=== PATIENT | male | born 1950 | race Caucasian/White ===

== ENCOUNTER 2022-04-21 10:02 | Outpatient (REF) | payer MEDICARE, OTHER, SELFPAY ==
[2022-04-21 11:14] LABS: SARS PCR* Negative SARS-CoV-2 (Negative)
== END 2022-04-21 10:03 | disposition home or self-care (01) ==
LOC: NPINS 10:02
PROVIDERS: PCP Family Medicine; Visit Provider Internal Medicine
DX: Z11.52 Encounter for screening for COVID-19 (principal)
CPT/HCPCS: 87635

== ENCOUNTER 2022-04-22 20:31 | Outpatient (CLI) | payer MEDICARE, OTHER, SELFPAY | END 2022-04-22 20:32 | disposition home or self-care (01) | LOC: SLEEP 20:31 | PROVIDERS: PCP Family Medicine; Visit Provider Internal Medicine | DX: G47.33 Obstructive sleep apnea (adult) (pediatric) (principal) | CPT/HCPCS: 95810 ==

== ENCOUNTER 2024-08-18 22:20 | Emergency (ER) | payer MEDICARE, OTHER, SELFPAY ==
[2024-08-18] VITALS (7 sets, daily range): BP systolic 132–151; BP diastolic 85–97; PULSE 95–106; RESP 16; TEMP 36.8; O2SAT 91–93
--- OUTSIDE RECORDS SUMMARY | 2024-08-18 22:22 | XMS_ITS | Continuity of Care Document ---
Author Name [facility] Organization [facility] Care Team Providers Care Rehabilitation Engineer Name Role Phone [facility] Unavailable Unavailable Medications Combined list of outpatient medications from Department of Defense and Veterans Affairs facilities.Medications provided include 1) outpatient medications from the last 15 months, and 2) patient-reported medications. Medication Details Route Status Patient Instructions Prescription Expires Prescription Number Last Dispense Date Ordering Provider Order Date Order Qty Source AMLODIPINE BESYLATE (AMLODIPINE BESYLATE), 10 MG, TABLET, ORAL, [employer], 1000 ea. BOTTLE Cancele d [id number] : 2023 0 Pharmac y Data Transac tion Service Facilit y ATORVASTATI N CALCIUM (atorvastat in calcium), 40 MG, TABLET, ORAL, [facility], 1000 ea. BOTTLE Cancele d [id number] : 2023 0 Pharmac y Data Transac tion Service Facilit y ATORVASTATI N CALCIUM (atorvastat in calcium), 40 MG, TABLET, ORAL, [facility], 1000 ea. BOTTLE Active [id number] 4 2023 90 Pharmac y Data Transac tion Service Facilit y AZELAIC ACID (azelaic acid), 15 %, GEL (GRAM), TOPICAL, [employer], 50 g TUBE Active [id number] 4 2023 50 Pharmac y Data Transac tion Service Facilit y DEXTROAMPHE TAMINE-AMPH ETAMINE (dextroamph etamine sulf-saccha rate/amphet amine sulf-aspart ate), 10 MG, TABLET, ORAL, [employer], 100 ea. BOTTLE Active [id number] 3 2022 90 Pharmac y Data Transac tion Service Facilit y DEXTROAMPHE TAMINE-AMPH ETAMINE (dextroamph etamine sulf-saccha rate/amphet amine sulf-aspart ate), 10 MG, TABLET, ORAL, [employer], 100 ea. BOTTLE Active [id number] 4 2023 90 Pharmac y Data Transac tion Service Facilit y DOXYCYCLINE HYCLATE (doxycyclin e hyclate), 20 MG, TABLET, ORAL, [facility], 90 ea. BOTTLE Active [id number] 4 2023 180 Pharmac y Data Transac tion Service Facilit y DOXYCYCLINE HYCLATE (DOXYCYCLIN E HYCLATE), 20 MG, TABLET, ORAL, [employer] [facility], 100 ea. BOTTLE Active [id number] 4 2023 180 Pharmac y Data Transac tion Service Facilit y FLUOCINONID E (FLUOCINONI DE), 0.05%, SOLUTION, TOPICAL, [employer], 60 ml BOTTLE Active [id number] 2023 60 Pharmac y Data Transac tion Service Facilit y FLUOCINONID E (FLUOCINONI DE), 0.05%, SOLUTION, TOPICAL, [employer], 60 ml BOTTLE Active [id number] 4 2023 60 Pharmac y Data Transac tion Service Facilit y KETOCONAZOL E (ketoconazo le), 2 %, SHAMPOO, TOPICAL, [facility] [place], 120 ml BOTTLE Cancele d [id number] : 2023 0 Pharmac y Data Transac tion Service Facilit y LOSARTAN POTASSIUM (losartan potassium), 50 MG, TABLET, ORAL, [employer] [facility], 90 ea. BOTTLE Active [id number] 4 2023 90 Pharmac y Data Transac tion Service Facilit y METFORMIN HCL (METFORMIN HCL), 1000 MG, TABLET, ORAL, [employer] 500 ea. BOTTLE Active [id number] 4 2023 180 Pharmac y Data Transac tion Service Facilit y METFORMIN HCL (METFORMIN HCL), 1000 MG, TABLET, ORAL, [employer] 500 ea. BOTTLE Active [id number] 4 2023 180 Pharmac y Data Transac tion Service Facilit y MONTELUKAST SODIUM (montelukas t sodium), 10 MG, TABLET, ORAL, [employer] [facility], 90 ea. BOTTLE Active [id number] 4 2023 90 Pharmac y Data Transac tion Service Facilit y SYNTHROID (LEVOTHYROX INE SODIUM), 125MCG, TABLET, ORAL, [facility] 1000 ea. BOTTLE Active [id number] 4 2023 90 Pharmac y Data Transac tion Service Facilit y TRULICITY (dulaglutid e), 3 MG/0.5ML, PEN INJCTR, SUBCUT, [employer] .5 ml SYRINGE Active [id number] 4 2023 6 Pharmac y Data Transac tion Service Facilit y TRULICITY (dulaglutid e), 3 MG/0.5ML, PEN INJCTR, SUBCUT, [employer] .5 ml SYRINGE Cancele d [id number] : 2023 0 Pharmac y Data Transac tion Service Facilit y TRULICITY (dulaglutid e), 3 MG/0.5ML, PEN INJCTR, SUBCUT, [employer] .5 ml SYRINGE Active [id number] 4 2023 6 Pharmac y Data Transac tion Service Facilit y Allergies, Adverse Reactions, Alerts Combined list of allergies from Department of Defense and Veterans Affairs facilities. It does not include entries that were removed or entered in error. Substance Category Reaction Severity Reaction type Status Date Reported Comments Source No Known Allergies Drug allergy (disorder) active 05/02/2007 [facility] Immunizations Combined list of available immunizations from the Department of Defense and Veterans Affairs facilities. Immunization Series Date Given Administered By Site Reaction Lot Number CVX Code Drug Online Marketer Status Comments Source COVID-19, mRNA, LNP-S, PF, 30 mcg/0.3 mL dose, cherry-sucrose 2021 ATTARIAN, () Not Given COVID-19, mRNA, LNP-S, PF, 30 mcg/0.3 mL dose, cherry-sucr ose DoD Procedures Combined list of: 1) Procedures from Department of Veterans Affairs facilities [facility], not all VA non-surgical procedures are included; 2) All procedures from the Department of Defense facilities. Procedure Procedure Type Code Date Perfomer Comments Kayode reynoso ARTHROSCOPY OF SHOULDER 02/22/1993 [facility] OTHER ARTHROTOMY OF SHOULDER 02/22/1993 [facility] Social History Combined list of available smoking, tobacco, and other social history from Department of Defense and Veterans Affairs facilities. Social History Type Response Date Comment Kayode reynoso This section is an empty social history section. DoD
--- OUTSIDE RECORDS SUMMARY | 2024-08-18 22:22 | XMS_ITS | Data Portability ---
Author Organization [facility], [facility] Address [address] [place] [address] Assessment No assessment recorded. Plan of Treatment Reminders Order Date Submit Date Provider Last Modified By Organization Details Last Modified Time Details Appointments None recorded. Lab PSA, total, serum or plasma 2021 022 [email or web address] 30 [facility], [address], [place], [address], 08:46:59 Referral None recorded. Procedures None recorded. Surgeries None recorded. Imaging None recorded. Medication Orders trospium ER 60 mg capsule,ex tended release 24 hr 2021 023 [facility], [address] [place] [address], [address], 17:50:16 Patient TargetsNo targets recorded. Patient InstructionsNo instructions recorded. Reason for Referral None Reported. Results Created Date Observation Date Name Description Value Unit Range Abnormal Flag Note LastModifiedBy Organization Detail LastModifiedTime 08/27/19 23 08/20/2022 bladd er scan (PROC ) No observ ation record ed. BARCODE Not Available 2022 09:48:58 Result Notes None recorded. Procedures Surgical History Date Name Laterality Status Provider Name and Address Organization Details Recorded Time Bladder Scan completed Ryan Prado MD [address] [place] [address],[address] [place] [address], [phone], [facility] 08/20/2022 14:31:25 operation on varicocele completed Ryna Pardo MD [address] [place] [address],[address], [address], [facility] 08/20/2022 14:29:41 Orthopedic Surgery completed Ryan Pardo MD [address] [place] [address],[address], [phone], [facility] 08/20/2022 14:29:49 operation on lumbar spine completed Ryan Pardo MD [address] [place] [address],[address], [phone], [facility] 08/20/2022 14:30:14 Imaging Results Imaging Date Name Status LastModified by Organiz ation Details LastModified Time 08/20/2022 bladder scan (PROC) completed BARCODE Information not available 08/27/2022 09:48:58 Procedure Notes None recorded. Medical Equipment None Reported. Allergies Allergen ID Allergen Name Allergen Category Reaction Reaction Severity Criticality Documentation Date Start Date Code Code System Note Provider Name and Address Organization Details Recorded Time [id number] 2824e Jardiance medicatio n Not available Not available Not available 08/20/2022 34029 59 RxNorm Not Available Not Available Not Available [id number] 2824e lisinopri l medicatio n Not available Not available Not available 08/20/2022 70851 RxNorm Not Available Not Available Not Available [id number] 2824e hydrochlo rothiazid e medicatio n Not available Not available Not available 08/20/2022 5487 RxNorm Not Available Not Available Not Available [id number] 2824e Lunesta medicatio n Not available Not available Not available 08/20/2022 11914 4 RxNorm Not Available Not Available Not Available [id number] 2824e Tradjenta medicatio n Not available Not available Not available 08/20/2022 33096 03 RxNorm Not Available Not Available Not Available Medications Name Sig Start Date Stop Date Status Note LastModified by Organization Details LastModified Time atorvastati n 40 mg tablet active Not Available Not Available Not Available ketoconazol e 2 % shampoo active Not Available Not Available Not Available dextroamphe tamine-amph etamine 10 mg tablet active Not Available Not Available No t Available amlodipine 10 mg tablet active Not Available Not Available Not Available metformin 1,000 mg tablet active Not Available Not Available Not Available levothyroxi ne 125 mcg tablet active Not Available Not Available Not Available dextroamphe tamine-amph etamine 20 mg tablet active Not Available Not Available No t Available losartan 25 mg tablet active Not Available Not Available No t Available Advair Diskus 250 mcg-50 mcg/dose powder for inhalation active Not Available Not Available N ot Available montelukast 10 mg tablet active Not Available Not Available Not Available fluocinonid e 0.05 % topical solution active Not Available Not Available Not Available doxycycline hyclate 20 mg tablet 08/20 completed Not Available Not Available Not Available ketoconazol e 2 % topical cream active Not Available Not Available Not Available trospium 20 mg tablet active Not Available Not Available No t Available ProAir HFA 90 mcg/actuati on aerosol inhaler active Not Available Not Available Not Available trospium ER 60 mg capsule,ext ended release 24 hr Take 1 capsule every day by oral route. 2021 active Not Available Not Available Not Avai lable Trulicity 1.5 mg/0.5 mL subcutaneou s pen injector active Not Available Not Available Not Available Trulicity 3 mg/0.5 mL subcutaneou s pen injector ADMINISTE R 0.5 ML UNDER THE SKIN 1 TIME WEEKLY active Not Available Not Available No t Available Vitals Date Recorded Body height Body mass index (BMI) Body weight Provider Name and Address Organization Details Last Updated DateTime 08/20/2022 175.26 cm 23.6 kg/m2 39010.78 g Ryan Pardo MD [address] [place] [address], [phone], [facility] 08/20/2022 14:24:42 Social History Question Answer Notes LastModified by Organizat ion Details LastModified Time Tobacco Smoking Status Former Smoker Ryan Pardo MD [address] [place] [address],[address], [phone], [facility] 08/20/2022 14:29:26 What Is Your Level Of Alcohol Consumption? Occasional Information not available 08/20/2022 What Is Your Level Of Caffeine Consumption? Occasional Information not available 08/20/2022 When Did You Quit Smoking? 16+yearssincel astcigarette Information not available 08/20/2022 What Was The Date Of Your Most Recent Tobacco Screening? 08/20/2022 Information not available 08/20/2022 Do You Use Any Illicit Or Recreational Drugs? No Information not available 08/20/2022 Do You Or Have You Ever Used Any Other Forms Of Tobacco Or Nicotine? No Information not available 08/20/2022 Sex: Unknown Functional Status None recorded. Mental Status None recorded. Family History Relationship Description Onset Age of this Age Resolved Age Notes LastModified by Organization Details LastModified Time Father Malignant neoplasm of urinary bladder Not available 2021 14:28:27 Unspecified Relation Malignant neoplasm of skin grandf ather side of family Not available 08/20/2022 14:28:55 Paternal Grandmother Malignant tumor of lung Not available 2021 14:29:07 Medical History Condition Response Diabetes Y Other Y High Blood Pressure Y Past Encounters Encounter ID Performer Location Encounter Start Date Encounter Closed Date Diagnosis/Indication Diagnosis SNOMED-CT Code Diagnosis ICD10 Code [id number] Ryan Pardo MD [facility] [address] [place] [phone] 08/20/2022 14:10:45 08/27/2022 16:59:30 Overactive urinary bladder 864279316 N32.81 Lower urin silvino tract symptoms due to benign prostatic hypertrophy 5237185806 9101 N40.1 Health Concerns Section Related Observation LastModified by Organization Detai ls LastModified Time None Recorded Concern Status LastModified by Organization Details LastModified Time None Recorded Advance Directives Directive None Recorded Payers Encounter Date Sequence Insurance Name Policy Number Policy Jorge Covered Member ID Jorge Member ID Guarantor Name 08/20/2022 1 [place]: [employer] Ricco H Moll [id number] Ricco H Moll 08/20/2022 2 [employer] - FOR LIFE (MEDICARE SUPPLEMENT) Ricco H Moll [id number] Ricco Ventura Moll Notes Date Note Type Note Provider Name and Address Organization Details Recorded Time 08/20/2022 text/html 72 yo male with 10 year H/O urinary urgency / frequency. His father has a H/O bladder cancer. He tried Flomax in the past with no change in urination. He tried Rapaflo 8 mg daily - no change. He then tried Oxybutynin ER 5 mg daily - some improvement, but caused dry mouth: then Vesicsare 10 mg daily - minimal change; then Myrbetriq 50 mg daily - some improvement; also tried Detrol LA 4 mg daily - mild improvement.He is currently on Trospium 20 mg BID and CPAP. 09/03/20 - He presents for follow-up on urination. He reports no change in urination - denies hesitancy or dysuria. He voids every 1-3 hours during the day and 3-4x/night. He still has episodes of urgency (with rare leakage). 08/20/22 - He presents for follow-up on urination. He voids every 2-3 hours during the day and 1-3x/night. He has urgency (with occasional leakage) - uses 1 pad per day. He denies dysuria.- PVR = 65 mL ___ PSA - 0.85 (04/28/06)- 0.83 (06/27/08)- 0.82 (08/05/11)- 0.57 (09/02/12)- 0.66 (11/15/13)- 0.45 (09/16/16)- 0.44 (09/15/17)- 0.55 (01/28/19)- 0.63 (03/20/20)- 1.43 (03/21/21) Ryan Pardo MD [address], [place], [address], [facility] 08/26/2022 17:57:11
--- NOTE | 2024-08-18 22:49 | ED.GENADULT ---
HPI - General Adult General Date Seen: 08/18/24 Chief complaint: Neuro Symptoms/Altered Deficit Stated complaint: fatigue Time Seen by Provider: 08/18/24 22:48 History of Present Illness HPI narrative: 74-year-old male brought to the ER today for evaluation of altered mental status. He apparently told his that he was going to leave home and go get dog food matter about 7:00 p.m. but did not come home for several hours. He was found by police department in [facility] and did not know where he was. He has no focal deficits. He apparently has a history of ?mild cognitive impairment?. He is currently alert and oriented x4. Glucose was 299, per EMS. Past medical history from the [facility] link chart include Hypertension Type 2 diabetes Hypothyroidism Hypertriglyceridemia Vitamin-D deficiency Eosinophilic esophagitis Lumbar stenosis ADD Asthma Rosacea His medication list does not include any anticoagulants. He is on amlodipine, losartan for blood pressure Glipizide, metformin for diabetes Levothyroxine for hypothyroid History is obtained in part from the patient, it part from paramedics who brought him in, and in part from the family. He was at home with his and is generally pretty functional. He had an evaluation that showed mild cognitive impairment last year but is not have a diagnosis of dementia. He does have trouble with sleep and was started on mirtazapine about 3 weeks ago. He has not noted any new side effects from that. He the patient says he may have had a mild cough for a couple of days, but his really does not think so. He does have trouble with sleep because he gets up frequently to urinate every night. That is not really a new symptom for him. He has no definite new symptoms lately. No fevers. No known fall or head injury. His son notes that he generally tends not to eat or drink very much and tends to be very dehydrated but that is a longstanding problem for him. This evening at about 7:00 p.m. he left his home here in [place] to go to [employer] to buy some dog food. He is able to tell me that he has 2 different breathes of dogs and that they by 2 brands of dry dog food to mix with green beans for his dogs. His says that all these about a [address] their house and he normally would be able to get there and back with no difficulty. He had been gone for a couple of hours before his realized that he had not come home on time. The patient had gotten lost on the road and drove all the way to [facility] [place]. He was disoriented and could not figure out where he was or how to get home. 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 He apparently called his . She called his children, who live in [place] and were driving South to pick him up. They were able to locate him because of his ?find my phone? rosa on his smart phone. His [id number] called police and they went to his location. They checked him out and he was disoriented. They called paramedics who transported him here to the ER [place]. Now that he is here he says he is just ?very sleepy. ? he 1st keep his eyes closed. When I ask a couple of times he does open them. GCS 14. He has no other complaints. No headache. No chest pain. No nausea vomiting. No known rashes. No falls. No body aches or pain. He is not short of breath. Related Data Allergies Allergy/AdvReac Type Severity Reaction Status Date / Time linagliptin Allergy Severe Hives Verified 03/31/22 10:14 empagliflozin Allergy Mild Hives Verified 03/31/22 10:14 eszopiclone Allergy Mild Hives Verified 03/31/22 10:14 LISINOPRIL-HYDROCHLOROTHIAZIDE Allergy Mild decreased Uncoded 03/31/22 10:14 renal function Exam Narrative: Exam Narrative: Constitutional: Appears well-developed and well-nourished. Eyes are closed. Seems drowsy. Answers many questions appropriately but overall is a fairly flat affect. Seems unconcerned by the fact that he was so disoriented tonight. He opens his eyes to request. HENT: Head: Atraumatic. No depressed skull fracture, Raccoon Eyes, Fitzgerald's sign, or hemotympanum. Face normal. TMs normal Nose: Nose normal. Mouth/Throat: Oral mucosa is clear and moist. no trismus. Pharynx normal. Tonsils symmetric. No tonsillar enlargement, erythema, or exudate. Eyes: Conjunctivae normal. EOM normal. Pupils equal, round, and reactive to light. No scleral icterus. Neck: Normal range of motion. Neck supple. No tracheal deviation present. Cardiovascular: Tachycardic, 105, sinus tach on the monitor, regular rhythm. No gallop. No friction rub. No murmur heard. Symmetric radial artery pulses Pulmonary/Chest: Effort normal. No stridor. No respiratory distress. No wheezes. No rales. No rhonchi . No tenderness. Abdominal: Soft. Bowel sounds normal. No distension. No mass. No tenderness. No rebound. No guarding. No CVA tender Musculoskeletal: RUE: Normal range of motion. No tenderness. No deformity LUE: Normal range of motion. No tenderness. No deformity RLE: Normal range of motion. No edema. No tenderness. No deformity LLE: Normal range of motion. No edema. No tenderness. No deformity Neurological: Alert and oriented to person, place, and time. Normal strength. CN II-VII intact. No sensory deficit. GCS eye subscore is 4. GCS verbal subscore is 5. GCS motor subscore is 6. Normal coordination Cranial nerves intact. No facial droop. Tongue protrudes in the midline. Palate elevates symmetrically Upper extremity strength 5/5 bilaterally in the deltoid, biceps, triceps, planning official. Lower extremity strength 5/5 bilaterally in the psoas, quad, hamstring, gastroc. Sensory function intact x4 extremities. No focal deficits Skin: Skin is warm and dry. No rash noted. No pallor. Normal capillary refill.. No diabetic foot ulcer Psychiatric: Normal mood. Flat affect Const: Vital Signs, click to edit/add: Vital Signs - 24 hr 08/18/24 22:32 08/18/24 22:56 08/18/24 23:00 Temperature 98.3 F Pulse Rate 102 H 105 H Pulse Rate [Pulse Oximeter] 102 H Respiratory Rate 16 Blood Pressure Blood Pressure [Ri ght Upper Arm] 151/97 H Pulse Oximetry 93 93 91 Oxygen Delivery Me thod Room Air 08/18/24 23:01 08/18/24 23:23 08/18/24 23:30 Temperature Pulse Rate 106 H 95 100 Pulse Rate [Pulse Oximeter] Respiratory Rate Blood Pressure 132/85 Blood Pressure [Ri ght Upper Arm] Pulse Oximetry 91 91 91 Oxygen Delivery Me thod 08/18/24 23:45 08/19/24 00:00 08/19/24 00:01 Temperature Pulse Rate 101 H 104 H 102 H Pulse Rate [Pulse Oximeter] Respiratory Rate Blood Pressure 146/95 H Blood Pressure [Ri ght Upper Arm] Pulse Oximetry 92 93 93 Oxygen Delivery Me thod 08/19/24 00:15 08/19/24 00:30 Temperature Pulse Rate 101 H 102 H Pulse Rate [Pulse Oximeter] Respiratory Rate Blood Pressure Blood Pressure [Ri ght Upper Arm] Pulse Oximetry 91 92 Oxygen Delivery Me thod Course Vital Signs Vital signs: Initial Vital Signs Temperature 98.3 F 08/18/24 22:32 Temperature Source Temporal Artery Scan 08/18/24 22:32 Pulse Rate 102 H 08/18/24 22:32 Respiratory Rate 16 08/18/24 22:32 Blood Pressure 151/97 H 08/18/24 22:32 Blood Pressure Mean 115 H 08/18/24 22:32 Blood Pressure Position Sitting 08/18/24 22:32 Pulse Oximetry 93 08/18/24 22:32 Oxygen Delivery Method Room Air 08/18/24 22:32 Vital Signs Temperature 98.3 F 08/18/24 22:32 Pulse Rate 102 H 08/18/24 22:32 Respiratory Rate 16 08/18/24 22:32 Blood Pressure 151/97 H 08/18/24 22:32 Pulse Oximetry 93 08/18/24 22:32 Oxygen Delivery Method Room Air 08/18/24 22:32 Temperature 98.3 F 08/18/24 22:32 Pulse Rate 102 H 08/19/24 00:30 Respiratory Rate 16 08/18/24 22:32 Blood Pressure 146/95 H 08/19/24 00:01 Pulse Oximetry 92 08/19/24 00:30 Oxygen Delivery Method Room Air 08/18/24 22:32 Medications Administered Medications: Generic Name Dose Route Start Last Admin Trade Name Freq PRN Reason Stop Dose Admin Sodium Chloride 500 mls @ 500 mls/hr 08/19/24 00:36 08/19/24 01:00 0.9 % Sodium Chloride 500 Ml IV 08/19/24 01:35 Infused .Q1H ONE Infusion Discontinued Medications Generic Name Dose Route Start Last Admin Trade Name Freq PRN Reason Stop Dose Admin Sodium Chloride 500 mls @ 500 mls/hr 08/18/24 22:58 08/18/24 23:56 0.9 % Sodium Chloride 500 Ml IV 08/18/24 23:57 Infused .Q1H ONE Infusion Medical Decision Making MDM Narrative Medical decision making narrative: This is a pleasant 74-year-old gentleman with a history of mild cognitive impairment but normally home with his brought to the ER tonight by EMS for an acute episode of disorientation. He apparently left home in [place] this evening to go to the grocery store to get dog food and then got lost on the road and wound up lost in [place]. He does have disorientation with a GCS of 14. No focal deficits. No headache. Noncontrast head CT is negative for any focal intracranial hemorrhage, signs of intracranial trauma such as subdural, and no evidence for subarachnoid. He has no headache to raise concern for aneurysmal subarachnoid hemorrhage. At this point no indication for CTA. He does have a known history of type 2 diabetes. Blood sugar is elevated at 299. Metabolic profile shows normal anion gap, normal sodium. No evidence for DKA. With only moderate hyperglycemia, do not think this represents nonketotic hyperosmolar syndrome. The patient reported a cough for couple of days, but his not think he is coughing. Chest x-ray is obtained and is negative for pneumonia. Also negative for pulmonary edema, pneumothorax. VBG shows normal pH and pCO2. No wheezing on lung exam. PCR is negative for COVID, influenza, RSV. Laboratory workup shows normal sodium and electrolytes. Kidney function normal. LFTs normal. He has no history of liver failure to suggest hepatic encephalopathy. He has no fever or leukocytosis to suggest encephalitis so at this point the risk and discomfort of lumbar puncture would outweigh the benefit. He does have an elevated heart rate initially but she improves shortly after arrival here to the ER. He is not febrile but could consider possible infection or sepsis causing delirium. White count is normal. Venous lactic mildly abnormal at 2.6. Patient received a L of IV saline. He says he is feeling much better and on repeat exam he is definitely more alert and more conversant. Repeat lactic acid is improved to 1.9. Urinalysis does not show any sign of UTI. No pyuria, bacteria, nitrate, leukocyte esterase. He does have hematuria. Unclear etiology. He is not having abdominal pain or flank pain to suggest kidney stone. At this point I do not think he needs abdomen/pelvis CT. Would recommend outpatient follow-up with PCP and consideration for urologic evaluation in the outpatient setting. Discussed the need for follow-up for the hematuria with the patient and his . They verbalized understanding. Lab Data Labs: Lab Results 08/18/24 08/18/24 08/18/24 Range/Units 22:30 22:57 23:35 WBC 7.04 (4.50-11.00) K/uL RBC 4.30 (4.30-5.90) m/uL Hgb 12.9 L (13.5-17.5) gm/dL Hct 39.7 (37.0-53.0) % MCV 92 (80-100) fL MCH 30 (26-34) pg MCHC 33 (32-36) gm/dL RDW Coeff of Little 12.5 (11.5-15.5) % Plt Count 169 (140-440) K/uL Neut % (Auto) 83.5 H (42.0-72.0) % Lymph % (Auto) 7.2 L (20-44) % [place] % (Auto) 7.0 (0.0-11.0) % Eos % (Auto) 0.3 (0.0-7.0) % Baso % (Auto) 0.3 (0.0-3.0) % Neut # (Auto) 5.90 (1.7-7.0) K/uL Lymph # (Auto) 0.50 L (0.90-2.90) K/uL [place] # (Auto) 0.50 (0.00-0.90) K/UL Eos # (Auto) 0.02 (0.00-0.50) K/uL Baso # (Auto) 0.02 (0.00-0.30) K/uL Abs Immat Gran (auto) 0.12 (0.00-0.30) K/uL Imm/Tot Granulo (auto) 1.7 % VBG pH 7.334 (7.32-7.43) VBG pCO2 54 H (40-50) mmHG VBG pO2 < 30.1 (25-47) mmHG VBG HCO3 29 H (21-28) mmol/L Sodium 137 (135-149) mmol/L Potassium 4.3 (3.6-5.1) mmol/L Chloride 104 (96-114) mmol/L Carbon Dioxide 27 (20-32) mmol/L Anion Gap 6 L (7-15) mEq/L BUN 8 (7-30) mg/dL Creatinine 0.5 (0.5-1.5) mg/dL Estimated GFR 108 ml/min Glucose 292 H (60-115) mg/dL Lactate 2.6 H (0.5-1.9) mmol/L Calcium 9.0 (8.4-10.6) mg/dL Total Bilirubin 0.4 (0.1-1.5) mg/dL AST 21 (12-35) U/L ALT 24 (4-50) U/L Alkaline Phosphatase 57 (40-150) U/L Total Protein 6.9 (6.0-8.3) g/dL Albumin 4.1 (3.3-5.0) g/dL TSH 1.580 (0.270-4.200) uIU/mL Urine Color (Yellow) Urine Appearance (Clear) Urine pH (5.0-8.5) Ur Specific [place] (1.000-1.030) Urine Protein (Negative) Urine Glucose (UA) (Negative) Urine Ketones (Negative) Urine Blood (Negative) Urine Nitrite (Negative) Urine Bilirubin (Negative) Urine Urobilinogen (0.2-1.0) Ur Leukocyte Esterase (Negative) Urine RBC (0-2) Urine WBC (0-5) Ur Squamous Epith Cells (None-Few) Urine Bacteria (None) SARS-CoV-2 (PCR) Negative SARS-CoV-2 (Negative) Influenza Type A (PCR) Negative PCR FLU A (Negative) Influenza Type B (PCR) Negative PCR FLU B (Negative) RSV (PCR) Negative PCR RSV (Negative) POC Troponin I 0.00 L (0.01-0.04) ng/ml 08/18/24 08/19/24 Range/Units 23:50 01:21 WBC (4.50-11.00) K/uL RBC (4.30-5.90) m/uL Hgb (13.5-17.5) gm/dL Hct (37.0-53.0) % MCV (80-100) fL MCH (26-34) pg MCHC (32-36) gm/dL RDW Coeff of Little (11.5-15.5) % Plt Count (140-440) K/uL Neut % (Auto) (42.0-72.0) % Lymph % (Auto) (20-44) % [place] % (Auto) (0.0-11.0) % Eos % (Auto) (0.0-7.0) % Baso % (Auto) (0.0-3.0) % Neut # (Auto) (1.7-7.0) K/uL Lymph # (Auto) (0.90-2.90) K/uL [place] # (Auto) (0.00-0.90) K/UL Eos # (Auto) (0.00-0.50) K/uL Baso # (Auto) (0.00-0.30) K/uL Abs Immat Gran (auto) (0.00-0.30) K/uL Imm/Tot Granulo (auto) % VBG pH (7.32-7.43) VBG pCO2 (40-50) mmHG VBG pO2 (25-47) mmHG VBG HCO3 (21-28) mmol/L Sodium (135-149) mmol/L Potassium (3.6-5.1) mmol/L Chloride (96-114) mmol/L Carbon Dioxide (20-32) mmol/L Anion Gap (7-15) mEq/L BUN (7-30) mg/dL Creatinine (0.5-1.5) mg/dL Estimated GFR ml/min Glucose (60-115) mg/dL Lactate 1.9 (0.5-1.9) mmol/L Calcium (8.4-10.6) mg/dL Total Bilirubin (0.1-1.5) mg/dL AST (12-35) U/L ALT (4-50) U/L Alkaline Phosphatase (40-150) U/L Total Protein (6.0-8.3) g/dL Albumin (3.3-5.0) g/dL TSH (0.270-4.200) uIU/mL Urine Color Yellow (Yellow) Urine Appearance Cloudy A (Clear) Urine pH 5.0 (5.0-8.5) Ur Specific [place] 1.010 (1.000-1.030) Urine Protein Negative (Negative) Urine Glucose (UA) 2+ A (Negative) Urine Ketones Negative (Negative) Urine Blood 3+ A (Negative) Urine Nitrite Negative (Negative) Urine Bilirubin Negative (Negative) Urine Urobilinogen 0.2 (0.2-1.0) Ur Leukocyte Esterase Negative (Negative) Urine RBC 10-25 A (0-2) Urine WBC 0-2 (0-5) Ur Squamous Epith Cells None (None-Few) Urine Bacteria None (None) SARS-CoV-2 (PCR) (Negative) Influenza Type A (PCR) (Negative) Influenza Type B (PCR) (Negative) RSV (PCR) (Negative) POC Troponin I (0.01-0.04) ng/ml Imaging Data Chest x-ray: Attestation: I have reviewed the pertinent imaging results. Radiologist's impression: IMPRESSION: No acute cardiopulmonary abnormality. CT scan - head: Attestation: I have reviewed the pertinent imaging results. Radiologist's impression: IMPRESSION: No acute intracranial abnormality ECG Data Attestation: I personally reviewed and interpreted this ECG as follows: Interpretation: Normal sinus rhythm Rate: 99 VA: 168 QRS axis: Normal axis. No pathologic Q-waves. ST segment/T wave: No ST segment elevation or depression. QTc: 423 Discharge Plan Discharge Clinical Impression: Acute alteration in mental status, Hematuria Patient Disposition: Home, Self-Care Condition: Stable Instructions: Hematuria (ED), Altered Mental Status (ED) Additional Instructions: Please follow-up with your regular care provider within the next 2-3 days for recheck. Please discussed this event of disorientation with your doctor and ask them to do a follow-up workup. Also, please have your doctor do a follow-up workup for the blood in your urine sample. If you have any concerns especially trouble breathing, fever, more confusion, nausea vomiting, weakness, dizzy spells, or any problems, please return to the ER right away. Activity Level: Activity as Tolerated Discharge Diet: Regular Follow Up/Referrals: William Delgado MD [Primary Care Provider] - Stand Alone Forms: [employer] Info Instructions
--- NOTE | 2024-08-18 22:57 | CRLHL7_ITS ---
For Patients: As a result of the Century Cures Act, medical imaging exams and procedure reports are released immediately into your electronic medical record. You may view this report before your referring provider. If you have questions, please contact your health care provider. INDICATION: Altered mental status. TECHNIQUE: CT head without contrast. COMPARISON: None. FINDINGS: No acute intracranial hemorrhage. No CT evidence of recent territorial infarct. No hydrocephalus or midline shift. Preserved cerebral parenchymal volume. Mild chronic microvascular ischemic changes. Visualized paranasal sinuses and mastoid air cells are well ventilated. No acute calvarial fracture. IMPRESSION: No acute intracranial abnormality. Please note that all CT scans at this facility use dose modulation, iterative reconstruction, and/or weight-based dosing when appropriate to reduce radiation dose to as low as reasonably achievable. Dictated by Bill Quezada MD @ 08/18/2024 11:54:24 PM (Electronically Signed)
[2024-08-18] MEDS: 0.9 % SODIUM CHLORIDE 500 ML 500 ML IV (23:03)
--- NOTE | 2024-08-18 23:08 | CRLHL7_ITS ---
For Patients: As a result of the Cures Act, medical imaging exams and procedure reports are released immediately into your electronic medical record. You may view this report before your referring provider. If you have questions, please contact your health care provider. INDICATION: Cough and altered mental status. TECHNIQUE: Chest 2 views. COMPARISON: Chest x-ray 12/26/2020. FINDINGS: Cardiac silhouette is not abnormally enlarged. The trachea is midline. No definite confluent airspace opacity. Mild left lung base atelectasis. No pleural effusion or pneumothorax. No acute osseous abnormality. IMPRESSION: No acute cardiopulmonary abnormality. Dictated by Bill Quezada MD @ 08/18/2024 11:58:50 PM (Electronically Signed)
--- OUTSIDE RECORDS SUMMARY | 2024-08-18 23:17 | XMS_ITS | Continuity of Care Document ---
Author Name [facility] Organization [facility] Care Team Providers Care Athletic Monitor Name Role Phone [facility] Unavailable Unavailable Medications Combined list of outpatient medications from Department of Defense and Veterans Affairs facilities.Medications provided include 1) outpatient medications from the last 15 months, and 2) patient-reported medications. Medication Details Route Status Patient Instructions Prescription Expires Prescription Number Last Dispense Date Ordering Provider Order Date Order Qty Source AMLODIPINE BESYLATE (AMLODIPINE BESYLATE), 10 MG, TABLET, ORAL, Aquto, 1000 ea. BOTTLE Cancele d [id number] : 2023 0 Pharmac y Data Transac tion Service Facilit y ATORVASTATI N CALCIUM (atorvastat in calcium), 40 MG, TABLET, ORAL, JAYDEN PHARMACEU, 1000 ea. BOTTLE Cancele d [id number] : 2023 0 Pharmac y Data Transac tion Service Facilit y ATORVASTATI N CALCIUM (atorvastat in calcium), 40 MG, TABLET, ORAL, JAYDEN PHARMACEU, 1000 ea. BOTTLE Active [id number] 4 2023 90 Pharmac y Data Transac tion Service Facilit y AZELAIC ACID (azelaic acid), 15 %, GEL (GRAM), TOPICAL, [employer], 50 g TUBE Active [id number] 4 2023 50 Pharmac y Data Transac tion Service Facilit y DEXTROAMPHE TAMINE-AMPH ETAMINE (dextroamph etamine sulf-saccha rate/amphet amine sulf-aspart ate), 10 MG, TABLET, ORAL, [employer]uto, 100 ea. BOTTLE Active [id number] 2022 90 Pharmac y Data Transac tion Service Facilit y DEXTROAMPHE TAMINE-AMPH ETAMINE (dextroamph etamine sulf-saccha rate/amphet amine sulf-aspart ate), 10 MG, TABLET, ORAL, [employer], 100 ea. BOTTLE Active [id number] 4 2023 90 Pharmac y Data Transac tion Service Facilit y DOXYCYCLINE HYCLATE (doxycyclin e hyclate), 20 MG, TABLET, ORAL, [facility], 90 ea. BOTTLE Active [id number] 4 2023 180 Pharmac y Data Transac tion Service Facilit y DOXYCYCLINE HYCLATE (DOXYCYCLIN E HYCLATE), 20 MG, TABLET, ORAL, [employer] [facility], 100 ea. BOTTLE Active [id number] 4 2023 180 Pharmac y Data Transac tion Service Facilit y FLUOCINONID E (FLUOCINONI DE), 0.05%, SOLUTION, TOPICAL, [employer], 60 ml BOTTLE Active [id number] 4 2023 60 Pharmac y Data Transac tion Service Facilit y FLUOCINONID E (FLUOCINONI DE), 0.05%, SOLUTION, TOPICAL, [employer], 60 ml BOTTLE Active [id number] 4 2023 60 Pharmac y Data Transac tion Service Facilit y KETOCONAZOL E (ketoconazo le), 2 %, SHAMPOO, TOPICAL, [employer] [place], 120 ml BOTTLE Cancele d [id number] : 2023 0 Pharmac y Data Transac tion Service Facilit y LOSARTAN POTASSIUM (losartan potassium), 50 MG, TABLET, ORAL, [employer], 90 ea. BOTTLE Active [id number] 2023 90 Pharmac y Data Transac tion Service Facilit y METFORMIN HCL (METFORMIN HCL), 1000 MG, TABLET, ORAL, [employer] 500 ea. BOTTLE Active [id number] 4 2023 180 Pharmac y Data Transac tion Service Facilit y METFORMIN HCL (METFORMIN HCL), 1000 MG, TABLET, ORAL, [employer] 500 ea. BOTTLE Active [id number] 4 2023 180 Pharmac y Data Transac tion Service Facilit y MONTELUKAST SODIUM (montelukas t sodium), 10 MG, TABLET, ORAL, [employer]ARMACE, 90 ea. BOTTLE Active [id number] 2023 90 Pharmac y Data Transac tion Service Facilit y SYNTHROID (LEVOTHYROX INE SODIUM), 125MCG, TABLET, ORAL, [employer] 1000 ea. BOTTLE Active [id number] 4 2023 90 Pharmac y Data Transac tion Service Facilit y TRULICITY (dulaglutid e), 3 MG/0.5ML, PEN INJCTR, SUBCUT, [employer] .5 ml SYRINGE Active [id number] 4 2023 6 Pharmac y Data Transac tion Service Facilit y TRULICITY (dulaglutid e), 3 MG/0.5ML, PEN INJCTR, SUBCUT, [employer] .5 ml SYRINGE Cancele d [id number] : 2023 0 Pharmac y Data Transac tion Service Facilit y TRULICITY (dulaglutid e), 3 MG/0.5ML, PEN INJCTR, SUBCUT, [employer] .5 ml SYRINGE Active [id number] 4 2023 6 Pharmac y Data Transac tion Service Facilit y Allergies, Adverse Reactions, Alerts Combined list of allergies from Department of Defense and Veterans Affairs facilities. It does not include entries that were removed or entered in error. Substance Category Reaction Severity Reaction type Status Date Reported Comments Source No Known Allergies Drug allergy (disorder) active 05/02/2007 [facility] Immunizations Combined list of available immunizations from the Department of Defense and Veterans Affairs facilities. Immunization Series Date Given Administered By Site Reaction Lot Number CVX Code Drug [place] Status Comments Source COVID-19, mRNA, LNP-S, PF, 30 mcg/0.3 mL dose, cherry-sucrose 2021 ATTARIAN, () Not Given COVID-19, mRNA, LNP-S, PF, 30 mcg/0.3 mL dose, cherry-sucr ose DoD Procedures Combined list of: 1) Procedures from Department of Veterans Affairs facilities [facility], not all VA non-surgical procedures are included; 2) All procedures from the Department of Defense facilities. Procedure Procedure Type Code Date Perfomer Comments Kayode reynoso ARTHROSCOPY OF SHOULDER 02/22/1993 [facility] OTHER ARTHROTOMY OF SHOULDER 02/22/1993 [facility] Social History Combined list of available smoking, tobacco, and other social history from Department of Defense and Veterans Affairs facilities. Social History Type Response Date Comment Kayode reynoso This section is an empty social history section. DoD
[2024-08-18 23:19] LABS: PCR FLU A Negative PCR FLU A (Negative); PCR FLU B Negative PCR FLU B (Negative); PCR RSV Negative PCR RSV (Negative); SARS PCR* Negative SARS-CoV-2 (Negative)
[2024-08-18 23:40] LABS: HCO3 VBG 29 mmol/L (21-28); Lactate* 2.6 mmol/L (0.5-1.9); PCO2 VBG 54 mmHG (40-50); PO2 VBG < 30.1 mmHG (25-47); pH VBG 7.334 (7.32-7.43)
[2024-08-19] VITALS: PULSE 104; O2SAT 93
[2024-08-19] LABS: Appearance Urine Cloudy (Clear); Bilirubin Urine Negative (Negative); Blood Urine 3+ (Negative); Color Urine Yellow (Yellow); Glucose Urine 2+ (Negative); Ketones Urine Negative (Negative); Leukocyte Esterase Urine Negative (Negative); Nitrite Urine Negative (Negative); Protein Urine Negative (Negative); Urobilinogen Urine 0.2 (0.2-1.0)
[2024-08-19 00:01] VITALS: BP 146/95; PULSE 102; O2SAT 93
[2024-08-19 00:01] LABS: Albumin* 4.1 g/dL (3.3-5.0); Chloride* 104 mmol/L (96-114); Potassium* 4.3 mmol/L (3.6-5.1); Sodium* 137 mmol/L (135-149)
[2024-08-19 00:02] LABS: Basophils Absolute Auto 0.02 K/uL (0.00-0.30); Basophils Percent Auto 0.3 % (0.0-3.0); Eosinophils Absolute Auto 0.02 K/uL (0.00-0.50); Eosinophils Percent Auto 0.3 % (0.0-7.0); Hematocrit 39.7 % (37.0-53.0); Hemoglobin* 12.9 gm/dL (13.5-17.5); Immature Granulocytes Abs Auto 0.12 K/uL (0.00-0.30); Immature Granulocytes Pct Auto 1.7 %; Lymphocytes Percent Auto 7.2 % (20-44); Mean Corpuscular HGB Conc 33 gm/dL (32-36); Mean Corpuscular Hemoglobin 30 pg (26-34); Mean Corpuscular Volume 92 fL (80-100); Neutrophils Percent Auto 83.5 % (42.0-72.0); Platelet Count* 169 K/uL (140-440); RDW Coefficient of Variation % 12.5 % (11.5-15.5); White Blood Count* 7.04 K/uL (4.50-11.00)
[2024-08-19 00:03] LABS: Creatinine* 0.5 mg/dL (0.5-1.5); Estimated Glomerular Filt Rate 108 ml/min; Slide Review Reflex No
[2024-08-19 00:04] LABS: Alanine Aminotransferase* 24 U/L (4-50); Alkaline Phosphatase* 57 U/L (40-150); Anion Gap 6 mEq/L (7-15); Aspartate Amino Transferase* 21 U/L (12-35); Bilirubin Total* 0.4 mg/dL (0.1-1.5); Blood Urea Nitrogen* 8 mg/dL (7-30); Carbon Dioxide* 27 mmol/L (20-32); Glucose* 292 mg/dL (60-115); Total Protein* 6.9 g/dL (6.0-8.3)
[2024-08-19 00:15] VITALS: PULSE 101; O2SAT 91
[2024-08-19 00:30] VITALS: PULSE 102; O2SAT 92
[2024-08-19 00:42] LABS: WBC Urine 0-2 (0-5)
[2024-08-19] MEDS: 0.9 % SODIUM CHLORIDE 500 ML 500 ML IV (00:43)
[2024-08-19 01:24] LABS: Lactate* 1.9 mmol/L (0.5-1.9)
== END 2024-08-19 01:42 | disposition home or self-care (01) ==
PROVIDERS: Emergency Provider Emergency Medicine; PCP Family Medicine
DX: R41.82 Altered mental status, unspecified (principal); R31.9 Hematuria, unspecified
CPT/HCPCS: 36415; 70450; 71046; 80053; 81001; 82803; 83605; 84443; 84484; 85025; 87631; 93005; 99284; 99285; J7030